=== PATIENT | female | born 1990 | race Caucasian/White ===

== ENCOUNTER → 2022-10-11 | Outpatient (CLI) | payer OTHER ==
[~2022-10-11] MED LIST: BENTYL 10MG10 MG/CAP PO; LO LOESTRIN FE1 TAB PO; PRIL40 PO; TENORMIN 2525 MG/TAB PO
== END ==
LOC: COL.RAD 09:35
DX: R11.2 Nausea with vomiting, unspecified (principal)
CPT/HCPCS: A9537-JZ; J2805